=== PATIENT | female | born 1990 | race Caucasian/White ===

== ENCOUNTER 2020-01-18 11:33 | Inpatient (IN) | payer BC ==
[~2020-01-18] VITALS: Ht 172.7 cm; Wt 106.8 kg
[2020-01-18] MEDS ORDERED: PRENATAL VITAMI1 TA3 PO (17:00)
--- NOTE | 2020-01-18 23:40 | NUR ---
Ambulatory to unit for labor assessment, accompanied by spouse. Oriented to room, monitor, plan of care. Pt reports contractions getting stronger, and closer together.
[2020-01-19] VITALS (20 sets, daily range): BP systolic 110–140; BP diastolic 56–86; PULSE 76–151; TEMP 98.1–99.2
--- NOTE | 2020-01-19 00:25 | NUR ---
Pt off EFM for intermittent monitoring.
[2020-01-19 00:36] LABS: BASO % 0.2 % (0.0-2.0); EOS # 0.1 (0.0-0.7); EOS % 0.4 % (0-4.0); GRAN # 13.7 (1.4-6.5); GRAN % 81.4 % (42.2-75.2); HEMATOCRIT 42.7 % (37.0-47.0); HEMOGLOBIN 14.5 g/dl (12.5-16.0); LYMPH # 2.1 (1.2-3.4); LYMPH % 12.5 % (20.0-51.0); MEAN CELL VOLUME 83 fl (80.0-100.0); MEAN CORPUSCULAR HEMOGLOBIN 28 pg (27.0-31.0); MEAN CORPUSCULAR HGB CONC 34 g/dl (33.0-37.0); MEAN PLATELET VOLUME 10.4 fl (7.4-10.4); MONO # 0.8 (0.1-0.6); MONO % 4.8 % (1.7-9.3); PLATELET COUNT 157 K/mm3 (130-400); RED BLOOD COUNT 5.12 M/mm3 (4.10-5.30); REDCELL DISTRIBUTION WIDTH-CV 13.2 % (11.5-14.5)
--- NOTE | 2020-01-19 01:55 | NUR ---
Pt off EFM for intermittent monitoring.
--- NOTE | 2020-01-19 02:30 | NUR ---
Dr. Kaye on the unit. FHR tracing reviewed. No new orders at this time.
--- NOTE | 2020-01-19 03:29 | NUR ---
Pt off EFM for intermittent monitoring.
--- NOTE | 2020-01-19 05:02 | NUR ---
Pt off EFM for intermittent monitoring.
--- NOTE | 2020-01-19 06:43 | NUR ---
0604- Pt in bed, EFM and TOCO on, adjusted until tracing. 0643- EFM and TOCO off. Pt up to side of bed. Precautions given, Pt verbalizes understanding.
--- NOTE | 2020-01-19 09:18 | NUR ---
08- Pt into bed, EFM and TOCO on and tracing. Pt very uncomfortable with UCs, having back labor. 901- Pt standing at side of bed for comfort. EFM not tracing. This RN at bedside adjusting monitor. 903- Dr Vila at bedside. Pt assisted to bed between [facility]. 909- SVE by , /+1. Talked to Pt and baby being OP, encourage frequent position changes. 917- EFM and TOCO off. Pt up to standing on side of bed. Leaning over side of bed, educated on pressure to lower back.
--- NOTE | 2020-01-19 10:35 | NUR ---
1000- Pt calls RN to bedside, states feels "like I need to poop." Pt into bed. SVE unchanged, /1. 1004- EFM and TOCO on and tracing. Pt encouraged to sit in [place] to help with decent. 1017- Pt not tolerating sittin in bed, up to standing at bedside, leaning over bed. EFM and TOCO not tracing well. Adjusted by this RN. 1021- O2 sat monitor on and tracig. This RN continues to try to obtain FHR tracing but not successful due to maternal position. 1026- Pt repositions to standing upright, FHR tracing well. Pt continues to do this between UCs as tolerated. 1035- EFM, TOCO, and Sat monitor off per Pt request. Pt continues standing at bedside, leaning over bed. 1043- IVF on and infusing to improve Pt hydration.
--- NOTE | 2020-01-19 12:05 | NUR ---
1140- Pt into bed RL with left leg up on stirrup. EFM and TOCO applied, adjusted until tracing. UCs not tracing well, marker used by this RN to track frequency, see tracing. 1205- Category I FHR tracing noted. EFM and TOCO off per Pt request. Pt remains in bed.
--- NOTE | 2020-01-19 13:00 | NUR ---
1225- Pt assisted to LL, Pt does not tolerate contraction in this position. Requests to stand, assisted to standing. 1233- Dr Vila at bedside. SVE /+1. Discussed slow progress, recommending Pitocin augmentation. Questions answered. Pt agrees to start Pitocin. Pt into bathroom to void. 1249- Pt standing at side of bed. EFM and TOCO on and tracing. 1252- Pitocin started per policy at 2mu via pump. VSS. Call light within reach.
--- NOTE | 2020-01-19 14:00 | NUR ---
1345- Pt calls RN to bedside, states she does not feel like contractions are stopping. Fundus palpated by this RN, feels soft. Pt encouraged to slow breathing and relax. Pt still feeling uncomfortable between UCs. Dr Vila at the nurses station, called to bedside. 1350- SVE by , AL/+2 station. Pitocin decreased to 2mu per VO. Pt assisted to standing position.
--- NOTE | 2020-01-19 14:30 | NUR ---
1418- SVE, complete, practice push completed. Dr Vila at nurses station, updated that we are going to start pushing. 1421- Pt begins pushing with UCs.
--- NOTE | 2020-01-19 15:00 | NUR ---
1446- Dr Vila at bedside. Pt and room prepped for delivery. Colin Martines and Juarez, Nursery RNs at bedside. Pt continues pushing with [facility].
--- NOTE | 2020-01-19 15:19 | NUR ---
1519- Spontaneous vaginal delivery of viable female . Spontaneous, vigorous crying noted. placed on mother's abd, tended to by nursery RNs. Pitocin off. Cord blood obtained. 1522- Spontaneous delivery of placenta. Pitocin restarted at 333ml/hr. Fundus massaged to firm. Heavy bleeding noted. VO for Methergine received. Anastacia Bonilla, RN called to assist. 1525- Methergine given in left thigh. Bleeding improving. 2nd degree laceration repaired by . Approximate 3cm hematoma noted to right labia. Pericare completed, ice pack to perineum. Pt tolerated well.
[2020-01-19] MEDS ORDERED: IBU600 MG PO (16:05)
[2020-01-19] MEDS ORDERED: PERCOCET 325 MG1 TA2 PO (16:06)
--- NOTE | 2020-01-19 18:10 | NUR ---
1810- Pt ambulates to bathroom independently with standby assist x1. Pt unable to void at this time. Encouraged to drink water and try again in an hour. Pt verbalizes understanding. Pericare completed and explained. Underwear and ice pack on. Clean gown provided. Pt ambualtes to PP room. Oriented to room, call light within reach.
[2020-01-20 07:00] VITALS: BP 104/53; PULSE 93; TEMP 97.6
[2020-01-20 07:38] LABS: BASO % 0.2 % (0.0-2.0); EOS # 0.1 (0.0-0.7); EOS % 0.7 % (0-4.0); GRAN # 12.1 (1.4-6.5); GRAN % 71.9 % (42.2-75.2); HEMOGLOBIN 10.1 g/dl (12.5-16.0); LYMPH # 3.4 (1.2-3.4); LYMPH % 20.1 % (20.0-51.0); MEAN CELL VOLUME 84 fl (80.0-100.0); MEAN CORPUSCULAR HEMOGLOBIN 28 pg (27.0-31.0); MEAN CORPUSCULAR HGB CONC 34 g/dl (33.0-37.0); MEAN PLATELET VOLUME 10.2 fl (7.4-10.4); MONO % 6.1 % (1.7-9.3); PLATELET COUNT 144 K/mm3 (130-400); RED BLOOD COUNT 3.58 M/mm3 (4.10-5.30); REDCELL DISTRIBUTION WIDTH-CV 13.6 % (11.5-14.5)
[2020-01-20 07:39] LABS: HEMATOCRIT 30.1 % (37.0-47.0)
[2020-01-20 11:35] VITALS: BP 115/69; BP 134/81; PULSE 111; PULSE 76; TEMP 97.8
== END 2020-01-20 18:05 | disposition home or self-care (01) | DRG 806 ==
LOC: LDR → OB 01-19 19:42
PROVIDERS: Obstetrics & Gynecology; ADMIT Obstetrics & Gynecology
PROC: 10E0XZZ Delivery of Products of Conception, External Approach (ICD-10-PCS; principal; 2020-01-19)
PROC: 0KQM0ZZ Repair Perineum Muscle, Open Approach (ICD-10-PCS; 2020-01-19)
DX: O48.0 Post-term pregnancy (principal); O72.1 Other immediate postpartum hemorrhage; Z37.0 Single live birth; O71.7 Obstetric hematoma of pelvis; O99.824 Streptococcus B carrier state complicating childbirth; O70.1 Second degree perineal laceration during delivery; O77.0 Labor and delivery complicated by meconium in amniotic fluid; Z3A.42 42 weeks gestation of pregnancy
CPT/HCPCS: J2210; J2540; J2590; J7120

== ENCOUNTER 2020-01-18 16:44 | Outpatient (CLI) | payer BC ==
[~2020-01-18] VITALS: Ht 172.7 cm; Wt 106.8 kg
--- NOTE | 2020-01-18 16:55 | NUR ---
Patient ambulatory onto unit with at side for labor check. Patient reports contractions every 5-10 minutes, states her membranes were swept in the office today by . Denies leaking of fluid or vaginal bleeding, reports good movement. EFMs on, VS taken. SVE /-1 per [place]. Assessment completed. on unit, orders received.
[2020-01-18 17:00] VITALS: BP 129/75; PULSE 74; TEMP 98.1
[2020-01-18] MEDS ORDERED: PRENATAL VITAMI1 TA3 PO (17:00)
[2020-01-18 17:50] VITALS: BP 106/70; PULSE 76
--- NOTE | 2020-01-18 18:00 | NUR ---
Discharge instructions reviewed and return precautions given. Patient verbalizes understanding. Patient ambulatory off of unit with at side.
[2020-01-19] MEDS ORDERED: IBU600 MG PO (16:05)
[2020-01-19] MEDS ORDERED: PERCOCET 325 MG1 TA2 PO (16:06)
== END 2020-01-18 18:00 | disposition home or self-care (01) ==
LOC: LDRO 16:44 → LDR 16:55 → LDRO 18:00
DX: O62.9 Abnormality of forces of labor, unspecified (principal); Z3A.42 42 weeks gestation of pregnancy
CPT/HCPCS: OP